=== PATIENT | male | born 1930 | race Caucasian/White ===

== ENCOUNTER 2017-08-26 00:25 | Inpatient (IN) | payer OTHER, MEDICARE ==
[~2017-08-26] VITALS: Ht 167.6 cm; Wt 76.2 kg
--- NOTE | 2017-08-26 00:26 | NUR ---
PT AMBULATED TO BED 12.
[2017-08-26 00:28] VITALS: BP 119/75
--- NOTE | 2017-08-26 00:28 | NUR ---
86 Y/O M BIBA W/C/O ATYPICAL CHEST PAIN X 2 HRS AGO. MED HX HTN, HIGH CHOLESTEROL, A FIB, DEAF L EAR. PT STATES HIS PAIN HAS IMPROVED FRO AN 8 TO A 5/10 AFTER 0.8MG OF NITRO AND 165 ASPIRIRN GIVEN ON ROUTE. NO KNOWN ALLERGIES. ER MD MADE AWARE.
[2017-08-26 01:15] LABS: BASOPHILS # (AUTO) 0.2 K/uL (0.00-0.22); BASOPHILS % (AUTO) 1.5 % (0.0-2.0); EOSINOPHILS # (AUTO) 0.1 K/uL (0-0.4); EOSINOPHILS % (AUTO) 1.1 % (0.0-4.0); HEMATOCRIT 38.6 % (36-52); HEMOGLOBIN 12.9 g/dL (12.0-18.0); LYMPHOCYTES # (AUTO) 1.2 K/uL (2.0-11.5); LYMPHOCYTES % (AUTO) 10.6 % (20.5-51.1); MEAN CORPUSCULAR HEMOGLOBIN 32 pg (27-31); MEAN CORPUSCULAR HGB CONC 33 g/dL (33-37); MEAN CORPUSCULAR VOLUME 95 fL (80-94); MONOCYTES # (AUTO) 0.8 K/uL (0.8-1.0); NEUTROPHILS # (AUTO) 8.8 K/uL (1.8-7.7); NEUTROPHILS % (AUTO) 79.8 % (42.2-75.2); PLATELET COUNT (AUTO) 142 K/uL (140-450); RED BLOOD CELL COUNT(AUTO) 4.08 MIL/uL (4.20-6.10); RED CELL DISTRIBUTION WIDTH 12.9 % (11.6-13.7); WHITE BLOOD COUNT (AUTO) 11.1 K/uL (4.8-10.8)
[2017-08-26 01:30] LABS: ANION GAP 11.8 (8-16); CARBON DIOXIDE 24.4 mmol/L (21-32); CHLORIDE 106 mmol/L (98-107); CREATININE 1.3 mg/dL (0.7-1.3); GLUCOSE 123 mg/dL (74-106); POTASSIUM 4.2 mmol/L (3.5-5.1); SODIUM SERUM 138 mmol/L (136-145); UREA NITROGEN, BLOOD 15 mg/dL (7-18)
[2017-08-26 01:37] LABS: ALBUMIN 3.4 g/dL (3.4-5.0); ASPARTATE AMINOTRANSFERASE 15 U/L (15-37); TOTAL BILIRUBIN 0.5 mg/dL (0.0-1.0)
--- NOTE | 2017-08-26 02:22 | NUR ---
PT RSTING IN BED, AWATING FOR LAB RESULTS.
--- NOTE | 2017-08-26 03:05 | NUR ---
PT RESTING IN BED, ON MONITOR, NO S/S OF DISTRESS NOTED. AWATING FOR RESULTS.
--- NOTE | 2017-08-26 03:08 | NUR ---
DOYLE CHARLES AT BEDSIDE.
[2017-08-26] MEDS ORDERED: FUROSEMIDE 20 MG/2 ML VIAL IVP ONE (03:10)
[2017-08-26] MEDS ORDERED: DOCUSATE SODIUM 100 MG GELCAP PO PRN (04:10)
[2017-08-26] MEDS ORDERED: LORazepam 0.5 MG TAB PO PRN (04:10)
[2017-08-26] MEDS ORDERED: MORPHINE SULFATE 2 MG/ML SYR IVP PRN (04:10)
[2017-08-26] MEDS ORDERED: NITROGLYCERIN 0.4 MG TAB SL PRN (04:10)
[2017-08-26] MEDS ORDERED: HYDROcodone/APAP 7.5/325 MG 1 TAB PO PRN (04:10)
[2017-08-26] MEDS ORDERED: ACETAMINOPHEN 325 MG TAB PO PRN (04:10)
[2017-08-26] MEDS ORDERED: ZOLPIDEM 5 MG TAB PO PRN (04:10)
[2017-08-26] MEDS ORDERED: ONDANSETRON 4 MG/2 ML VIAL IM/IVP PRN (04:10)
[2017-08-26 04:46] LABS: CHOL/HDL RATIO 1.5 (1-4.5); FREE T4 (FREE THYROXINE) 1.08 ng/dL (0.76-1.46); MAGNESIUM 1.9 mg/dL (1.8-2.4); PHOSPHORUS 3.8 mg/dL (2.5-4.9); THYROID STIMULATING HORMONE 3.78 uIU/mL (0.34-3.74)
--- NOTE | 2017-08-26 05:04 | NUR ---
PT TRANSFERED TO FLOOR, VIA GURNEY. ACCOMPANIED BY EMT, AND RN.
[2017-08-26 05:07] LABS: HEMATOCRIT 42.2 % (36-52); HEMOGLOBIN 13.9 g/dL (12.0-18.0); MEAN CORPUSCULAR HEMOGLOBIN 31 pg (27-31); MEAN CORPUSCULAR HGB CONC 33 g/dL (33-37); MEAN CORPUSCULAR VOLUME 95 fL (80-94); PLATELET COUNT (AUTO) 151 K/uL (140-450); RED BLOOD CELL COUNT(AUTO) 4.43 MIL/uL (4.20-6.10); RED CELL DISTRIBUTION WIDTH 13.1 % (11.6-13.7); WHITE BLOOD COUNT (AUTO) 14.3 K/uL (4.8-10.8)
[2017-08-26 05:07] LABS: APPEARANCE,URINE CLEAR (CLEAR); BILIRUBIN,URINE NEGATIVE (NEGATIVE); BLOOD, URINE NEGATIVE (NEGATIVE); COLOR,URINE YELLOW (YELLOW); LEUKOCYTE ESTERASE ,URINE NEGATIVE (NEGATIVE); NITRITE, URINE NEGATIVE (NEGATIVE); UGLUCOSE NEGATIVE (NEGATIVE)
--- NOTE | 2017-08-26 05:08 | NUR ---
REPORT GIVEN TO TYRA ROSS AT BEDSIDE.
[2017-08-26 05:15] VITALS: BP 99/48
--- NOTE | 2017-08-26 05:15 | NUR ---
PT ARRIVED AT UNIT VIA GURNEY, PT AMBULATED TO BED, STABLE, NO DISTRESS NOTED, IV TO L FA 20G SL, SKIN INTACT WITH REDNESS TO THE SACRAL AREA, INITIAL ASSESSMENT DONE, ALL SAFETY PRECAUTION MET, WILL CONTINUE TO MONITOR.
[2017-08-26 05:16] LABS: ANION GAP 10.5 (8-16); CARBON DIOXIDE 28.1 mmol/L (21-32); CHLORIDE 105 mmol/L (98-107); CREATININE 1.3 mg/dL (0.7-1.3); GLUCOSE 111 mg/dL (74-106); POTASSIUM 4.6 mmol/L (3.5-5.1); SODIUM SERUM 139 mmol/L (136-145); UREA NITROGEN, BLOOD 16 mg/dL (7-18)
[2017-08-26 05:16] LABS: BARBITURATE, URINE NEG. ng/ml (NEG <=200); BENZODIAZEPINE, URINE NEG. ng/mL (NEG <=200); CANNABINOID, URINE NEG. ng/mL (NEG <=50); COCAINE, URINE NEG. ng/mL (NEG <=300); OPIATE, URINE NEG. ng/mL (NEG <=2000); PHENCYCLIDINE SCREEN,URINE NEG. ng/mL (NEG <=25)
[2017-08-26 05:19] LABS: RBC,URINE 0-5 (RARE) /HPF (0-5); WBC,URINE 0-5 (RARE) /HPF (0-5)
[2017-08-26 06:05] LABS: EOSINOPHILS % (MANUAL) 1 % (0-4); LYMPHOCYTES % (MANUAL) 10 % (20-46); MONOCYTES % (MANUAL) 2 % (5-12)
[2017-08-26] MEDS: NACL 0.9% 1,000 ML IV SCH ×2 (06:15→16:23)
[2017-08-26] MEDS ORDERED: WARF1TAB PO (07:27)
--- NOTE | 2017-08-26 07:30 | NUR ---
GAVE BEDSIDE REPORT TO DAY SHIFT NURSE CARLEY RN, ENDORSED PLAN OF CARE, PT STABLE NO DISTRESS NOTED, CALL LIGHT WITHIN REACH.
--- NOTE | 2017-08-26 07:31 | NUR ---
RECEIVED REPORT FROM THE REAL ESTATE VALUER NURSED AT BEDSIDE FOR CONTINUITY OF CARE. PT IS SLEEPING. NO SIGNS OF DISTRESS. WILL COME BACK AND ASSESS PT.
[2017-08-26 08:00] VITALS: BP 126/69
--- NOTE | 2017-08-26 08:00 | NUR ---
PT IS AWAKE AND SITTING UP IN BED, EATING BREAKFAST. PT IS HARD OF HEARING ON THE L EAR. NEED TO SPEECH LOUD FOR PT TO HEAR. PT IS AWAKE AND ORIENTED X 4. INTRODUCED MYSELF AND UPDATED THE BOARD. PT HAS A L FA 20G NS AT 100ML INFUSING. PER PT, PT USES THE WALKER AT HOME FOR UNDSTEADY GAIT. HE HAS A HX OF PROSTATE CANCER AND PROSTECTOMY. 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 PER JAVA DEVELOPMENT MANAGER NURSE, PT HAS REDNESS IN THE SACRAL AREA D/T INCONTINENT DERMATITIS. PT HAS NO COMPLAINTS AT THIS TIME. DENIES ANY CHEST PAINS, SOB. WILL CONTINUE TO MONITOR PT.
--- NOTE | 2017-08-26 08:48 | NUR ---
PATIENT HAS BEEN SCREENED AND CATEGORIZED MODERATE NUTRITION RISK. PATIENT WILL BE SEEN WITHIN 3-5 DAYS OF ADMISSION. 08/28/17-08/30/[address]
[2017-08-26] MEDS: METOPROLOL 25 MG TAB PO SCH ×2 (09:24→21:05)
[2017-08-26] MEDS: ASPIRIN 81 MG TAB.CHEW PO SCH (09:24)
[2017-08-26] MEDS: LISINOPRIL 5 MG TAB PO SCH (09:24)
[2017-08-26] MEDS: ATORVASTATIN 20 MG TAB PO SCH (09:24)
--- NOTE | 2017-08-26 09:30 | NUR ---
ADMINISTERED MORNING MEDICATIONS. PATIENT TOLERATED THEM WELL. SAFETY PRECAUTIONS IN PLACE. WILL CONTINUE TO MONITOR PATIENT.
[2017-08-26] MEDS ORDERED: LEVOFLOXACIN 500 MG/D5W PREMIX 100 ML IV SCH (11:00)
--- NOTE | 2017-08-26 11:00 | NUR ---
PATIENT RESTING. NO SIGNS OF DISTRESS OR SOB NOTED. NO S/SX OF REACTION NOTED. SAFETY PRECAUTIONS IN PLACE. BED IN LOWEST POSITION, CALL LIGHT WITHIN REACH. WILL CONTINUE TO MONITOR PATIENT.
[2017-08-26 12:00] VITALS: BP 121/70
[2017-08-26 12:44] LABS: BASOPHILS # (AUTO) 0.2 K/uL (0.00-0.22); BASOPHILS % (AUTO) 1.5 % (0.0-2.0); EOSINOPHILS # (AUTO) 0.1 K/uL (0-0.4); EOSINOPHILS % (AUTO) 0.7 % (0.0-4.0); HEMATOCRIT 38.2 % (36-52); HEMOGLOBIN 12.9 g/dL (12.0-18.0); LYMPHOCYTES # (AUTO) 1.4 K/uL (2.0-11.5); LYMPHOCYTES % (AUTO) 13.1 % (20.5-51.1); MEAN CORPUSCULAR HEMOGLOBIN 32 pg (27-31); MEAN CORPUSCULAR HGB CONC 34 g/dL (33-37); MEAN CORPUSCULAR VOLUME 94 fL (80-94); MONOCYTES # (AUTO) 0.6 K/uL (0.8-1.0); MONOCYTES % (AUTO) 5.8 % (1.7-9.3); NEUTROPHILS # (AUTO) 8.2 K/uL (1.8-7.7); NEUTROPHILS % (AUTO) 78.9 % (42.2-75.2); PLATELET COUNT (AUTO) 128 K/uL (140-450); RED BLOOD CELL COUNT(AUTO) 4.07 MIL/uL (4.20-6.10); RED CELL DISTRIBUTION WIDTH 12.8 % (11.6-13.7); WHITE BLOOD COUNT (AUTO) 10.5 K/uL (4.8-10.8)
--- NOTE | 2017-08-26 13:10 | NUR ---
PATIENT SLEEPING. NO SIGNS OF DISTRESS OR SOB NOTED. WILL CONTINUE TO MONITOR PATIENT.
--- NOTE | 2017-08-26 14:27 | NUR ---
PT WAITING TO BE SEEN BY DR. MCKEE, CARDIOLOGY CONSULT. PT FEELS HE'S READY TO GO HOME. WILL AWAIT DR. MCKEE'S ARRIVAL.
[2017-08-26 16:00] VITALS: BP 120/62
--- NOTE | 2017-08-26 16:45 | NUR ---
PATIENT SITTING UP IN BED READING NEWSPAPER. NO SIGNS OF DISTRESS OR SOB NOTED. PATIENT DENIES PAIN. SAFETY PRECAUTIONS IN PLACE, CALL LIGHT WITHIN REACH. WILL CONTINUE TO MONITOR PATIENT.
[2017-08-26] MEDS ORDERED: WARFARIN 2.5 MG TAB PO SCH (17:00)
--- NOTE | 2017-08-26 19:15 | NUR ---
REPORT GIVEN TO WOODWORKING MACHINE FEEDER RN AT BEDSIDE FOR CONTINUITY OF CARE. PATIENT IN STABLE CONDITION. Addendum: 08/26/17 at 1934 by Brian Hein RN AMENDED FOR TIME, 1929.
--- NOTE | 2017-08-26 19:30 | NUR ---
RECEIVED REPORT FROM AM NURSE. PT RESTING IN BED, AOX4, ABLE TO AMBULATE WITH ASSIST BUT C/O GENERALIZED WEAKNESS, ABLE TO VERBALIZE NEEDS. DISASTER RECOVERY MANAGER IN PLACE. PT DENIES CHEST PAIN, SOB OR S/S OF ACUTE DISTRESS. SACRAL REDNESS NOTED, PT ASSISTED TO REPOSITION SELF. PT CLEAN AND DRY, PT STATED THAT HE WILL USE CALL LIGHT WHEN NEEDING ASSISTANCE TO BE CLEANED. IV ACCESS ASYMPTOMATIC, PATENT AND INTACT. IVF INFUSING WELL. DISCUSSED AND REVIEWED PLAN OF CARE WITH PT. PT VERBALIZED UNDERSTANDING. ALL NEEDS MET. SAFETY MEASURES ENSURED. CALL LIGHT WITHIN REACH. WILL CONTINUE TO MONITOR.
[2017-08-26 20:00] VITALS: BP 108/64
--- NOTE | 2017-08-26 21:05 | NUR ---
ADMINISTERED DUE MED WITH EDUCATION. PT VERBALIZED UNDERSTANDING, TOLERATED MED WELL. ALL NEEDS MET. IVF INFUSING WELL. SAFETY MEASURES ENSURED. CALL LIGHT WITHIN REACH. WILL CONTINUE TO MONITOR.
[2017-08-27] VITALS: BP 101/60
[2017-08-27] MEDS: NACL 0.9% 1,000 ML IV SCH (00:08)
--- NOTE | 2017-08-27 00:15 | NUR ---
PT SLEEPING COMFORTABLY, AROUSABLE TO NAME, NO S/S OF ACUTE DISTRESS. ALL NEEDS MET. IVF INFUSING WELL. SAFETY MEASURES ENSURED. CALL LIGHT WITHIN REACH. WILL CONTINUE TO MONITOR.
[2017-08-27 04:00] VITALS: BP 116/70
[2017-08-27 06:15] LABS: T4 (THYROXINE) 5.9 ug/dL (4.5-12.0)
--- NOTE | 2017-08-27 07:15 | NUR ---
ENDORSED PLAN OF CARE TO AM NURSE. CONDITION STABLE.
--- NOTE | 2017-08-27 07:16 | NUR ---
RECEIVED REPORT FROM DENTAL HYGIENE INSTRUCTOR RN AT BEDSIDE FOR CONTINUITY OF CARE. PT IS HARD OF HEARING ON THE L EAR. NEED TO SPEAK LOUD FOR PT TO HEAR. PT WAS ASLEEP BUT EASILY AROUSABLE, INTRODUCED MYSELF AND UPDATED THE BOARD. VITAL SIGNS WITHIN NORMAL LIMITS. ASSISTED PATIENT TO SIT UP FOR BREAKFAST. PT HAS A L FA #20G INFUSING NS @ 100ML/HR. PER PT, PT USES THE WALKER AT HOME FOR UNSTEADY GAIT. HAS SCDS. HAS REDNESS ON THE SACRUM. PT HAS NO COMPLAINTS AT THIS TIME. DENIES ANY CHEST PAINS. NO SIGNS OF DISTRESS NOTED. AWAITING ON TROPONIN RESULTS. SAFETY PRECAUTIONS IN PLACE, BED ON LOWEST SETTING, CALL LIGHT WITHIN REACH. WILL CONTINUE TO MONITOR PT.
[2017-08-27 08:00] VITALS: BP 121/68
[2017-08-27 08:07] LABS: BASOPHILS # (AUTO) 0.2 K/uL (0.00-0.22); BASOPHILS % (AUTO) 2.7 % (0.0-2.0); EOSINOPHILS # (AUTO) 0.1 K/uL (0-0.4); EOSINOPHILS % (AUTO) 1.2 % (0.0-4.0); HEMOGLOBIN 12.8 g/dL (12.0-18.0); LYMPHOCYTES # (AUTO) 1.4 K/uL (2.0-11.5); MEAN CORPUSCULAR HEMOGLOBIN 32 pg (27-31); MEAN CORPUSCULAR HGB CONC 33 g/dL (33-37); MEAN CORPUSCULAR VOLUME 96 fL (80-94); MONOCYTES # (AUTO) 0.7 K/uL (0.8-1.0); MONOCYTES % (AUTO) 8.8 % (1.7-9.3); NEUTROPHILS # (AUTO) 5.2 K/uL (1.8-7.7); NEUTROPHILS % (AUTO) 68.3 % (42.2-75.2); PLATELET COUNT (AUTO) 116 K/uL (140-450); RED BLOOD CELL COUNT(AUTO) 4.07 MIL/uL (4.20-6.10); RED CELL DISTRIBUTION WIDTH 13.2 % (11.6-13.7); WHITE BLOOD COUNT (AUTO) 7.6 K/uL (4.8-10.8)
[2017-08-27 08:34] LABS: ANION GAP 9.9 (8-16); CARBON DIOXIDE 26.2 mmol/L (21-32); CHLORIDE 108 mmol/L (98-107); GLUCOSE 91 mg/dL (74-106); POTASSIUM 4.1 mmol/L (3.5-5.1); SODIUM SERUM 140 mmol/L (136-145); UREA NITROGEN, BLOOD 15 mg/dL (7-18)
--- NOTE | 2017-08-27 09:05 | NUR ---
ADMINISTERED MORNING MEDS. PATIENT TOLERATED THEM WELL. NO SIGNS OF DISTRESS OR SOB NOTED. SAFETY PRECAUTIONS IN PLACE, BED ON LOWEST SETTING, CALL LIGHT WITHIN REACH. WILL CONTINUE TO MONITOR PATIENT.
[2017-08-27] MEDS: ASPIRIN 81 MG TAB.CHEW PO SCH (09:06)
[2017-08-27] MEDS: LISINOPRIL 5 MG TAB PO SCH (09:06)
[2017-08-27] MEDS: METOPROLOL 25 MG TAB PO SCH (09:06)
[2017-08-27] MEDS: ATORVASTATIN 20 MG TAB PO SCH (09:06)
[2017-08-27] MEDS ORDERED: WARF2.5T1 PO (09:46)
--- NOTE | 2017-08-27 10:04 | NUR ---
CM NOTE INITIAL REVIEW FAXED TO [facility] [phone] JENNA [phone]
--- NOTE | 2017-08-27 10:35 | NUR ---
SERVICE DESK DIRECTOR INFORMED RN PATIENT'S HR WAS 48. WENT TO ASSESS PATIENT. PATIENT WAS ASLEEP. EASILY AROUSABLE. PATIENT SHOWS NO SIGNS OF DISTRESS OR SOB. BREATHING EVEN AND UNLABORED. SAFETY PRECAUTIONS IN PLACE, BED ON LOWEST SETTING, CALL LIGHT WITHIN REACH. WILL CONTINUE TO MONITOR PATIENT.
--- NOTE | 2017-08-27 11:45 | NUR ---
DISCHARGE INSTRUCTIONS GIVEN TO THE PT AND . PT AND VERBALIZED UNDERSTANDING. REMOVED IV, CANNULA INTACT. NO BLEEDING NOTED. REMOVED ID BANDS. TELE MONITOR REMOVED. PT WILL GET DRESSED AND LET ME KNOW WHEN HE IS READY TO LEAVE. WILL HAVE WHEELCHAIR READY. Addendum: 08/27/17 at 1508 by Ruby Turpin RN ACTUAL TIME 1445.
[2017-08-27 12:00] VITALS: BP 100/51
[2017-08-27 13:10] LABS: PROTHROMBIN TIME 11.7 secs (10.8-13.4)
[2017-08-27] MEDS ORDERED: WARF3TAB PO (13:34)
[2017-08-27] MEDS ORDERED: ATOR20TA40 PO (13:37)
[2017-08-27] MEDS ORDERED: ASPI81CT95 PO (13:37)
--- NOTE | 2017-08-27 15:10 | NUR ---
WALKED PT OUT IN WHEELCHAIR TO THE CAR IN FRONT. WITH PERSONAL BELONGINGS. PT IN STABLE CONDITION.
== END 2017-08-27 15:10 | disposition home or self-care (01) | DRG 206 ==
LOC: MED 00:25 → MTU 04:09
PROVIDERS: ADMIT Family Medicine Sports Medicine; ATTEND Family Medicine Sports Medicine
DX: M94.0 Chondrocostal junction syndrome [Tietze] (principal); D69.6 Thrombocytopenia, unspecified; I48.2 Chronic atrial fibrillation; K21.9 Gastro-esophageal reflux disease without esophagitis; E02 Subclinical iodine-deficiency hypothyroidism; I10 Essential (primary) hypertension; I25.10 Atherosclerotic heart disease of native coronary artery without angina pectoris; Z79.01 Long term (current) use of anticoagulants; R79.1 Abnormal coagulation profile; D72.829 Elevated white blood cell count, unspecified; Z95.1 Presence of aortocoronary bypass graft
CPT/HCPCS: 36415; 76700; 80048; 80053; 80305; 81001; 82150; 83036; 83605; 83690; 83735; 83880; 84100; 84436; 84439; 84443; 84479; 84484; 85025; 85610; 87081; 93005; 99285; J1940; J1956; J7030; Q0092